=== PATIENT | female | born 1995 | race Two or more races ===

== ENCOUNTER 2020-07-10 20:47 | Observation (INO) | payer SELFPAY ==
[2020-07-10] MEDS ORDERED: IV RINGERS,LACTATED 1000ML 1,000 ML IV SCH (21:15)
[2020-07-10 21:37] LABS: AMNIO PT NEGATIVE
[2020-07-10 21:48] LABS: BILIRUBIN,URINE NEGATIVE (NEG); CLARITY,URINE CLEAR; COLOR,URINE YELLOW; NITRITE,URINE NEGATIVE (NEG); PROTEIN,URINE NEGATIVE (NEG-TRACE)
[2020-07-10 21:53] LABS: BACTERIA,URINE 0 /HPF (0-FEW)
== END 2020-07-10 23:15 | disposition home or self-care (01) ==
LOC: 3 SO LND 20:47
PROVIDERS: ADMIT Obstetrics & Gynecology; ATTEND Obstetrics & Gynecology
DX: O62.9 Abnormality of forces of labor, unspecified (principal); Z3A.31 31 weeks gestation of pregnancy
CPT/HCPCS: 36415; 59025; 81001; 84112; 96360; 96361; G0378; G0379; J7120

== ENCOUNTER → 2020-09-13 | Outpatient (CLI) | payer SELFPAY ==
[~2020-09-13] MED LIST: DOCU-109 PO; IBUP-1060 PO
== END ==
LOC: LAB 11:20
PROVIDERS: ATTEND Obstetrics & Gynecology
DX: Z01.812 Encounter for preprocedural laboratory examination (principal); Z20.822 Contact with and (suspected) exposure to COVID-19
CPT/HCPCS: U0003